=== PATIENT | male | born 1995 | race Caucasian/White ===

== ENCOUNTER 2017-09-15 09:09 | Emergency (ER) | payer OTHER ==
--- NOTE | 2017-09-15 10:37 | ED ---
Skin Complaint - HPI Summary HPI Summary: Pt here w/ 2 lacs to ... finger on LT hand. Bleeding controlled w/ elevation and pressure. Denies N/T/W. Strength intact. Does not believe he has any FB present. Imms UTD. - History of Current Complaint Chief Complaint: EDExtremityUpper Time Seen by Provider: 09/15/17 10:18 Stated Complaint: LT HAND LAC Hx Obtained From: Patient Pain Intensity: 2 - Allergy/Home Medications Allergies/Adverse Reactions: Allergies Allergy/AdvReac Type Severity Reaction Status Date / Time No Known Allergies Allergy Verified 09/15/17 09:10 Home Medications: Home Medications NK [No Home Medications Reported] 09/15/17 [History Confirmed 09/15/17] PMH/Surg Hx/FS Hx/Imm Hx Cardiovascular History: Denies: Hx Pacemaker/ICD Sensory History: Denies: Hx Hearing Aid Neurological History: Reports: Hx Headaches Psychiatric History: Denies: Hx Panic Disorder - Surgical History Surgery Procedure, Year, and Place: SPLENECTOMY Infectious Disease History: No Infectious Disease History: Denies: Traveled Outside the [place] in Last 30 Days - Family History Known Family History: Positive: None - Social History Alcohol Use: Occasionally Substance Use Type: Reports: None Hx Tobacco Use: No Smoking Status (MU): Never Smoked Tobacco Physical Exam Vital Signs On Initial Exam: Initial Vitals Temp Pulse Resp BP Pulse Ox 97.3 F 75 16 146/66 100 09/15/17 09:10 09/15/17 09:10 09/15/17 09:10 09/15/17 09:10 09/15/17 09:10 Diagnostics - Vital Signs Vital Signs Temp Pulse Resp BP Pulse Ox 09/15/17 09:10 97.3 F 75 16 146/66 100 - Laboratory Lab Statement: Any lab studies that have been ordered have been reviewed, and results considered in the medical decision making process. Discharge - Discharge Plan Referrals: [facility] - [place] - Alex CASSIDY [Primary Care Provider] -
[2017-09-15 13:23] VITALS: BP 120/60
== END 2017-09-15 11:30 | disposition home or self-care (01) ==
LOC: ED 09:09
DX: S61.219A Laceration without foreign body of unspecified finger without damage to nail, initial encounter (principal); X58.XXXA Exposure to other specified factors, initial encounter; Y92.9 Unspecified place or not applicable
CPT/HCPCS: 99282